=== PATIENT | female | born 1975 | race Hispanic/Latino ===

== ENCOUNTER 2019-11-11 00:26 | Emergency (ER) | payer SELFPAY ==
[~2019-11-11] VITALS: Ht 160 cm; Wt 77.1 kg
[2019-11-11] MEDS ORDERED: PREDNISOLONE 15 MG/5 ML ORAL SOLUTION ONE (01:14)
[2019-11-11] MEDS ORDERED: PREDNISONE 20 MG TAB PO ONE (01:15)
[2019-11-11] MEDS ORDERED: KETOROLAC TROMETHAMINE 60 MG/2 ML VIAL IM ONE (01:15)
[2019-11-11] MEDS ORDERED: ALBUTEROL2.5 MG/3 M INH (01:23)
[2019-11-11] MEDS ORDERED: PROAIR HFA INH8.5 GM PO (01:23)
[2019-11-11] MEDS ORDERED: PREDNISONE20 MG PO (01:23)
--- NOTE | 2019-11-11 01:24 | Emergency Department Note ---
History of Present Illnes History of Present Illness Chief Complaint: montero History of Present Illness This is a 44 year old female. 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 Required: No Onset (how long ago): hour(s) (12) Location: generalized Quality: sharp Radiation: Reports non-radiation Severity: moderate Onset quality: gradual Duration (how long): hour(s) (12) Timing of current episode: constant Progression: unchanged Chronicity: recurrent Context: Denies recent illness, Denies recent surgery, Denies recent immobilization, Denies recent travel, Denies trauma/injury, Denies new medications, Denies hx of DVT/PE, Denies non-compliance w/ medications Relieving factors: none Exacerbating factors: none Associated symptoms: Reports shortness of breath (wheezing) Treatments prior to arrival: none Past Medical/Family History Physician Review I have reviewed the patient's past medical and family history. Any updates have been documented here. Past Medical History Recent Fever: No Clinical Suspicion of Infectio: No New/Unexplained Change in Ment: No Past Medical History: Asthma Past Surgical History: None Social History Smoking Cessation: Never Smoker Counseling Performed: No Alcohol Use: None Any Illegal Drug Use: No TB Exposure/Symptoms: No Physically hurt or threatened: No Family History Family history of heart diseas: No Other Any Pre-Existing Lines (PICC,: No Is patient up to date on immun: No Review of Systems Review of Systems Constitutional: Reports no symptoms EENTM: Reports no symptoms Cardiovascular: Reports no symptoms Respiratory: Reports as per HPI Gastrointestinal: Reports no symptoms Genitourinary: Reports no symptoms Musculoskeletal: Reports no symptoms Integumentary: Reports no symptoms Neurological: Reports as per HPI Psychological: Reports no symptoms Endocrine: Reports no symptoms Hematological/Lymphatic: Reports no symptoms Review of other systems: All other systems negative Physical Exam Related Data Vital signs reviewed: Yes Physical Exam CONSTITUTIONAL Constitutional: Present well-developed, Present well-nourished HENT HENT: Present normocephalic, Present atraumatic, Present oropharynx clear/moist, Present nose normal HENT L/R: Present left ext ear normal, Present right ext ear normal EYES Eyes: Reports PERRL, Reports conjunctivae normal NECK Neck: Present ROM normal, Present supple PULMONARY Pulmonary: Present effort normal, Present other (forced expiratory wheezes) CARDIOVASCULAR Cardiovascular: Present regular rhythm, Present heart sounds normal, Present capillary refill normal, Present normal rate GASTROINTESTINAL Abdominal: Present soft, Present nontender, Present bowel sounds normal GENITOURINARY Genitourinary: Present exam deferred SKIN Skin: Present warm, Present dry MUSCULOSKELETAL Musculoskeletal: Present ROM normal NEUROLOGICAL Neurological: Present alert, Present oriented x 3, Present no gross motor or sensory deficits PSYCHOLOGICAL Psychological: Present mood/affect normal, Present judgement normal Critical Care Time Comments no more montero s/p toradol Assessment & Plan Medical Decision Making MDM headache, asthma Assessment & Plan Final Impression: (1) Headache (2) Asthma exacerbation Depart Disposition: HOME, SELF-long term Meds Active Scripts Albuterol Sulfate (ALBUTEROL SULFATE) 2.5 Mg/3 Ml Vial.neb, 2.5 MG INH Q4HR PRN for SHORTNESS OF BREATH, #60 VIAL 1 Refill Prov:ELIANA MACK 11/11/19 Albuterol Sulf* (PROAIR HFA INHALER*) 8.5 Gm Inh, 2 INH PO Q4HR PRN for SHORTNESS OF BREATH, #1 INH DISPENSE WITH SPACER Prov:ELIANA MACK 11/11/19 Prednisone (PREDNISONE) 20 Mg Tab, 60 MG PO DAILY, #15 TAB START AT 11PM. TAKE 3 20 MG PILLS AT ONCE Prov:ELIANA MACK 11/11/19 ELIANA MACK Nov 11, 2019 01:24
== END 2019-11-11 01:45 | disposition home or self-care (01) ==
LOC: FSED 01:10
DX: R51 Headache (principal); J45.901 Unspecified asthma with (acute) exacerbation; R06.02 Shortness of breath
CPT/HCPCS: 99283; J1885; J7512